=== PATIENT | female | born 1985 | race Caucasian/White ===

== ENCOUNTER 2018-11-18 21:52 | Emergency (ER) | payer SELFPAY ==
[~2018-11-18] VITALS: Ht 162.6 cm; Wt 55.0 kg
[~2018-11-18 21:52] MED LIST: AMOXICILLIN500 MG PO; FLEXERIL10 MG PO; NAPROSYN500 MG PO
[2018-11-18] MEDS ORDERED: PERCOCET 5/325M1 TAB PO (22:25)
[2018-11-18] MEDS ORDERED: GENTAMICIN0.3 % OS (22:25)
[2018-11-18 22:31] VITALS: BP 120/80
== END 2018-11-18 22:35 | disposition home or self-care (01) | DRG 125 ==
LOC: ED 21:52
DX: S05.02XA Injury of conjunctiva and corneal abrasion without foreign body, left eye, initial encounter (principal); W50.4XXA Accidental scratch by another person, initial encounter; Y93.89 Activity, other specified; Y92.009 Unspecified place in unspecified non-institutional (private) residence as the place of occurrence of the external cause

== ENCOUNTER 2018-11-19 20:11 | Emergency (ER) | payer SELFPAY ==
[~2018-11-19] VITALS: Ht 162.6 cm; Wt 59.1 kg
[~2018-11-19 20:11] MED LIST changes: +GENTAMICIN0.3 % OS; +PERCOCET 5/325M1 TAB PO
[2018-11-19 20:35] VITALS: BP 117/80
== END 2018-11-19 20:35 | disposition home or self-care (01) | DRG 950 ==
LOC: ED 20:11
DX: S05.02XD Injury of conjunctiva and corneal abrasion without foreign body, left eye, subsequent encounter (principal); H57.12 Ocular pain, left eye